=== PATIENT | female | born 1950 | race African-American/Black ===

== ENCOUNTER 2019-10-17 14:36 | Inpatient (IN) | payer MEDICARE ==
--- NOTE | 2019-10-17 16:01 | ED ---
General Adult HPI - General Chief complaint: Psychiatric Symptoms Stated complaint: Mental Health Time Seen by Provider: 10/17/19 14:51 Source: EMS Mode of arrival: EMS Limitations: physical limitation - History of Present Illness Initial comments: Dictation was produced using [employer] dictation software. please excuse any grammatical, word or spelling errors. Chief Complaint: 69-year-old female brought in by daughter for psych evaluation. History of Present Illness: 69-year-old female she denies any significant medical history. She reports that she has a diagnosis of paranoid schizophrenia that she was diagnosed with at the age of 14. She is to take psychiatric medication however has not taken in 2-3 years. Daughter is concerned that patient has symptoms of psychosis. She's been having difficulty sleeping and been more agitated usual. She's been displaying aggressive behavior. Daughter is concerned about her well-being and decided to bring patient for psych evaluation. Patient has no medical complaints at this time. She does not agree with being here in the emergency Department however she is agreeable to being e valuated. Denies any chest pain, shortness of breath. Denies any urinary symptoms. The ROS documented in this emergency department record has been reviewed and confirmed by me. Those systems with pertinent positive or negative responses have been documented in the HPI. All other systems are other negative and/or noncontributory. PHYSICAL EXAM: General Impression: Alert and oriented x3, not in acute distress HEENT: Normocephalic atraumatic, extra-ocular movements intact, pupils equal and reactive to light bilaterally, mucous membranes moist, poor dentition Cardiovascular: Heart regular rate and rhythm, S1&S2 audible, no murmurs, rubs or gallops Chest: Lungs clear to auscultation bilaterally, no rhonchi, no wheeze, no rales Abdomen: Bowel sounds present, abdomen soft, non-tender, non-distended, no organomegaly Musculoskeletal: Pulses present and equal in all extremities, no peripheral edema Motor: no focal deficits noted Neurological: CN II-XII grossly intact, no focal motor or sensory deficits noted Skin: Intact with no visualized rashes Psych: Normal affect and mood ED course: 69-year-old female presents with daughter who was concerned about acute psychosis. She has been symptoms of insomnia and agitation. Vital signs upon arrival are within acceptable limits. Patient has no medical complaints at this time. Labs obtained for medical clearance it CBC unremarkable. Metabolic panel shows hypokalemia of 2.9, creatinine of 2.04. Drug screen is positive for benzodia zepines. Patient's well-appearing at this time. It's unclear whether she has baseline Andreia disease. Daughter is not sure. Given these findings to have patient admitted medically. She is given by mouth potassium and intravenous fluids patient be admitted for concern acute kidney injury and hypokalemia. Psychiatry will be on consult. Daughters agreeable with plan. Discussed patient case with Dr. Puentes was went except patient care for [facility] hospitalist group. Patient came provided. Petition was completed by daughter. Patient needed some Ativan for rest of behavior. - Related Data Home Medications Medication Instructions Recorded Confirmed ALPRAZolam [Xanax] 0.25 mg PO HS PRN 10/17/19 10/17/19 Ascorbic Acid [Vitamin C] 500 mg PO DAILY 10/17/19 10/17/19 Baclofen [Lioresal] 10 mg PO HS PRN 10/17/19 10/17/19 Cholecalciferol [Vitamin D3 (25 1,000 unit PO DAILY 10/17/19 10/17/19 Mcg = 1000 Iu)] Dextran/Hypromellose/Glycerin 1 drop BOTH EYES Q4H PRN 10/17/19 10/17/19 [Genteal Tears 0.1%-0.2%-0.3%] Enalapril [Vasotec] 20 mg PO BID 10/17/19 10/17/19 Ergocalciferol [Vitamin D2] 50,000 unit PO MO 10/17/19 10/17/19 Ferrous Sulfate [Feosol] 325 mg PO DAILY 10/17/19 10/17/19 Fluticasone Nasal [place] [Flonase 2 spr EA NOSTRIL DAILY 10/17/19 10/17/19 Nasal [place]] Labetalol [Trandate] 400 mg PO Q12H 10/17/19 10/17/19 Levothyroxine Sodium [Synthroid] 175 mcg PO DAILY 10/17/19 10/17/19 Multivitamins, Thera [Multivitamin 1 tab PO DAILY 10/17/19 10/17/19 (formulary)] NIFEdipine [Procardia XL] 90 mg PO DAILY 10/17/19 10/17/19 Potassium Chloride ER [K-Dur 20] 20 meq PO DAILY 10/17/19 10/17/19 Simvastatin [Zocor] 20 mg PO DAILY@1200 10/17/19 10/17/19 Temazepam [Restoril] 15 mg PO HS 10/17/19 10/17/19 Timolol 0.5% Ophth Soln [Timoptic 1 drop LEFT EYE BID 10/17/19 10/17/19 0.5% Ophth Soln] Triamterene/Hydrochlorothiazid 1 tab PO DAILY 10/17/19 10/17/19 [Triamterene-Hctz 37.5-25 mg Tb] glipiZIDE [Glucotrol] 20 mg PO AC-BID 10/17/19 10/17/19 hydrALAZINE HCL [Apresoline] 100 mg PO Q8H 10/17/19 10/17/19 prednisoLONE ACETATE 1% OPHTH 1 drops LEFT EYE BID 10/17/19 10/17/19 [Pred Forte 1%] sitaGLIPtin [Januvia] 100 mg PO DAILY 10/17/19 10/17/19 Allergies Allergy/AdvReac Type Severity Reaction Status Date / Time codeine AdvReac Vomiting Verified 10/17/19 16:54 Sulfa (Sulfonamide AdvReac Rash/Hives Verified 10/17/19 16:54 Antibiotics) Review of Systems ROS Statement: Those systems with pertinent positive or pertinent negative responses have been documented in the HPI. ROS Other: All systems not noted in ROS Statement are negative. Past Medical History Past Medical History: No Reported History Additional Past Medical History / Comment(s): unable to obtain Additional Past Surgical History / Comment(s): unable to obtain Past Psychological History: Schizophrenia Smoking Status: Current some day smoker Past Alcohol Use History: None Reported Past Drug Use History: None Reported General Exam Limitations: physical limitation Course Vital Signs 10/17/19 15:33 Temperature 97.9 F Pulse Rate 76 Respiratory 16 Rate Blood Pressure 151/76 O2 Sat by Pulse 99 Oximetry Medical Decision Making - Lab Data Result diagrams: 10/17/19 16:08 10/17/19 16:08 Lab Results 10/17/19 10/17/19 10/17/19 Range/Units 16:08 16:08 17:14 WBC 8.4 (3.8-10.6) k/uL RBC 4.61 (3.80-5.40) m/uL Hgb 12.8 (11.4-16.0) gm/dL Hct 40.6 (34.0-46.0) % MCV 88.2 (80.0-100.0) fL MCH 27.7 (25.0-35.0) pg MCHC 31.4 (31.0-37.0) g/dL RDW 16.2 H (11.5-15.5) % Plt Count 337 (150-450) k/uL Neutrophils % 63 % Lymphocytes % 27 % Monocytes % 6 % Eosinophils % 2 % Basophils % 2 % Neutrophils # 5.3 (1.3-7.7) k/uL Lymphocytes # 2.2 (1.0-4.8) k/uL Monocytes # 0.5 (0-1.0) k/uL Eosinophils # 0.2 (0-0.7) k/uL Basophils # 0.1 (0-0.2) k/uL Anisocytosis Slight Sodium 138 (137-145) mmol/L Potassium 2.9 L (3.5-5.1) mmol/L Chloride 107 (98-107) mmol/L Carbon Dioxide 23 (22-30) mmol/L Anion Gap 8 mmol/L BUN 20 H (7-17) mg/dL Creatinine 2.04 H (0.52-1.04) mg/dL Est GFR (CKD-EPI)AfAm 28 (>60 ml/min/1.73 sqM) Est GFR (CKD-EPI)NonAf 25 (>60 ml/min/1.73 sqM) Glucose 103 H (74-99) mg/dL Calcium 9.1 (8.4-10.2) mg/dL Urine Opiates Screen Not Detected (NotDetected) Ur Oxycodone Screen Not Detected (NotDetected) Urine Methadone Screen Not Detected (NotDetected) Ur Propoxyphene Screen Not Detected (NotDetected) Ur Barbiturates Screen Not Detected (NotDetected) U Tricyclic Antidepress Not Detected (NotDetected) Ur Phencyclidine Scrn Not Detected (NotDetected) Ur Amphetamines Screen Not Detected (NotDetected) U Methamphetamines Scrn Not Detected (NotDetected) U Benzodiazepines Scrn Detected H (NotDetected) Urine Cocaine Screen Not Detected (NotDetected) U Marijuana (THC) Screen Not Detected (NotDetected) Disposition Clinical Impression: Hypokalemia, FLEX (acute kidney injury), Psychosis Disposition: ADMITTED IP TO THIS HOSP Condition: Fair Referrals: Ketty Gomez MD [Primary Care Provider] - 1-2 days Decision Time: 19:23
[2019-10-17 16:29] LABS: Calcium 9.1 mg/dL (8.4-10.2); Potassium 2.9 mmol/L (3.5-5.1)
[2019-10-17 16:39] LABS: Anisocytosis Slight; Basophils # (A) 0.1 k/uL (0-0.2); Basophils % (A) 2 %; Eosinophils # (A) 0.2 k/uL (0-0.7); Eosinophils % (A) 2 %; HCT 40.6 % (34.0-46.0); HGB 12.8 gm/dL (11.4-16.0); Lymphocytes # (A) 2.2 k/uL (1.0-4.8); Lymphocytes % (A) 27 %; MCH 27.7 pg (25.0-35.0); MCHC 31.4 g/dL (31.0-37.0); MCV 88.2 fL (80.0-100.0); Mean Platelet Volume 7.8; Monocytes # (A) 0.5 k/uL (0-1.0); Monocytes % (A) 6 %; Neutrophils # (A) 5.3 k/uL (1.3-7.7); Neutrophils % (A) 63 %; Platelet Count 337 k/uL (150-450); RBC 4.61 m/uL (3.80-5.40); RDW 16.2 % (11.5-15.5); WBC 8.4 k/uL (3.8-10.6)
[2019-10-17 18:10] LABS: Amphetamine Screen,Urine Not Detected (NotDetected); Barbiturate Screen,Urine Not Detected (NotDetected); Benzodiazepines Screen,Urine Detected (NotDetected); Cocaine Screen,Urine Not Detected (NotDetected); Methadone Screen, Urine Not Detected (NotDetected); Opiate Screen,Urine Not Detected (NotDetected); Oxycodone Screen, Urine Not Detected (NotDetected); Phencyclidine Screen,Urine Not Detected (NotDetected); Tricyclic Antidepressant,Urine Not Detected (NotDetected); Urn Cannabinoid Scrn Not Detected (NotDetected)
[2019-10-17] MEDS ORDERED: POTASSIUM CHLORIDE ER 20 MEQ TAB.ER PO STA (18:16)
[2019-10-17] MEDS ORDERED: SODIUM CHLORIDE 0.9% 500 ML 500 ML IV STA (19:17)
[2019-10-17] MEDS ORDERED: LORazepam 1 MG TAB PO STA (19:46)
[2019-10-17] MEDS ORDERED: LORazepam 2 MG/ML INJ IM STA (19:51)
[2019-10-17] MEDS ORDERED: NALOXONE 0.4 MG/ML 1 ML VIAL IV PRN (23:13)
[2019-10-18] MEDS: SODIUM CHLORIDE 0.9% 1,000 ML IV SCH ×2 (01:52→10:19)
[2019-10-18] MEDS: LORazepam 2 MG/ML INJ IV PRN ×2 (10:18→20:31)
[2019-10-18] MEDS ORDERED: BACLOFEN 10 MG TAB PO PRN (11:07)
[2019-10-18] MEDS ORDERED: ALPRAZolam 0.25 MG TAB PO PRN (11:07)
[2019-10-18] MEDS ORDERED: ARTIFICIAL TEARS-HYPROMELLOSE DROPS 15 ML BTL BOTH EYES PRN (11:07)
[2019-10-18] MEDS: hydrALAZINE HCL 50 MG TAB PO SCH ×2 (12:17→20:35)
[2019-10-18] MEDS: LABETALOL 200 MG TAB PO SCH ×2 (12:18→20:35)
[2019-10-18] MEDS: NIFEdipine XL 90 MG TAB.ER.24 PO SCH (12:18)
[2019-10-18 12:59] LABS: Albumin 3.6 g/dL (3.5-5.0); Bilirubin, Delta 0.5 mg/dL (0.0-0.2); Bilirubin,Unconjugated 0.5 mg/dL (0.0-1.1); Total Protein 6.9 g/dL (6.3-8.2)
--- NOTE | 2019-10-18 13:00 | XR ---
EXAMINATION TYPE: XR chest 1V portable DATE OF EXAM: 10/18/2019 COMPARISON: NONE HISTORY: Shortness of breath and congestive heart failure TECHNIQUE: Single frontal view of the chest is obtained. FINDINGS: Right lower lung masslike opacity is seen obscuring the right heart border. Patient's chin obscures the lung apices. Cardia mediastinal silhouette is enlarged. No sizable pleural effusions. O sseous structures are grossly intact. IMPRESSION: Masslike consolidation of the right lower lobe. CT thorax is recommended to evaluate for pulmonary mass.
[2019-10-18 13:26] LABS: Glucose,Whole Blood 88 mg/dL (75-99)
[2019-10-18 15:03] LABS: Albumin 3.5 g/dL (3.5-5.0); Total Protein 6.7 g/dL (6.3-8.2)
[2019-10-18] MEDS ORDERED: flUPHENAZine 2.5 MG/ML (MDV) 10 ML VIAL IM PRN (15:28)
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
[2019-10-18] MEDS ORDERED: LORazepam 2 MG/ML INJ IM PRN (15:29)
[2019-10-18] MEDS ORDERED: IOPAMIDOL CONTRAST (ORAL USE) VIAL PO PRN (16:51)
[2019-10-18 17:15] LABS: Glucose,Whole Blood 112 mg/dL (75-99)
[2019-10-18] MEDS: glipiZIDE 10 MG TAB PO SCH (17:50)
[2019-10-18] MEDS: TIMOLOL 0.5% OPHTH DROPS 5 ML BTL LEFT EYE SCH (20:33)
[2019-10-18] MEDS: prednisoLONE ACETATE 1% OPHTH DROPS 5 ML BTL LEFT EYE SCH (20:34)
[2019-10-18 20:52] LABS: Glucose,Whole Blood 146 mg/dL (75-99)
[2019-10-18] MEDS ORDERED: TEMAZEPAM 15 MG CAP PO PRN (21:00)
[2019-10-18 21:41] LABS: Appearance,Urine Clear (Clear); Bacteria,Urine Rare /hpf; Bilirubin,Urine Negative (Negative); Blood,Urine Small (Negative); Color,Urine Yellow; Glucose,Urine (UA) 1+ (Negative); Ketones,Urine Negative (Negative); Leukocyte Esterase,Urine Negative (Negative); Mucus,Urine Rare /hpf; Nitrite,Urine Negative (Negative); Protein,Urine 3+ (Negative); Urobilinogen,Urine <2.0 mg/dL (<2.0); WBC,Urine 1 /hpf (0-5)
--- NOTE | 2019-10-18 23:22 | HP ---
HISTORY AND PHYSICAL DATE OF SERVICE: 10/18/2019. CHIEF COMPLAINTS: Change in mental status. HISTORY OF PRESENT ILLNESS: This 69-year-old woman with a past medical history of multiple medical problems including history of CHF, history of diabetes, hypertension, hyperlipidemia, sleep apnea, hypothyroidism, history of anxiety, depression, being followed by Dr. Ketty Gomez in the outpatient setting, was not feeling well over the past several days. Apparently the daughter is living with her and the daughter has noticed that the patient became increasingly paranoid and confused. The patient also had generalized weakness and diminished p.o. intake and because of symptom worsening, the psychosis was suspected and the daughter petitioned the patient. The patient was admitted to the hospital for further evaluation and treatment. Currently, the patient is sedated with Ativan, unable to give a coherent history. Most of the history received was taken from my discussions with staff, discussion with daughter at the bedside and review of the chart at this time. The creatinine has worsened, currently at 2.04. The previous creatinine unknown. Patient was started on IV fluids. Patient being closely monitored at this time. PAST MEDICAL HISTORY: History of CHF, diabetes, hypertension, hyperlipidemia, history of sleep apnea, hypothyroidism, history of anxiety, schizophrenia. MEDICATIONS: Prior to admission include home medications are: 1. Januvia 100 mg p.o. daily. 2. Pred Forte ophthalmic eye drops. 3. Apresoline 100 mg p.o. q.h.s. 4. Glucotrol 20 mg a.c. b.i.d. 5. Triamterene hydrochlorothiazide 37.5 mg 25 mg p.o. daily. 6. Timolol eyedrops 1 drop left eye b.i.d. 7. Restoril 15 mg q.h.s. 8. Zocor 20 mg p.o. daily. 9. K-Dur 20 mEq p.o. daily. 10.Procardia XL 90 mg p.o. daily. 11.Multivitamins 1 p.o. daily. 12.Synthroid 175 mg p.o. daily. 13.Labetalol 400 mg p.o. b.i.d. 14.Flonase 2 sprays daily. 15.Iron sulfate 320 mg p.o. daily. 16.Vitamin D2 50,000 p.o. Friday. 17.Lasix 20 mg p.o. b.i.d. 18.GenTeal 1 drop both eyes q.4h p.r.n. 19.Vitamin D3 1000 units p.o. daily. 20.Lioresal 10 mg q.h.s. p.r.n. 21.Vitamin C 500 mg p.o. daily. 22.Xanax 0.25 mg q.h.s. p.r.n. ALLERGIES: CODEINE AND SULFA. Family history, social history and review of systems could not be taken because of the patient's change in mental status and sedation. PHYSICAL EXAM: Patient is stuporous, arousable. Pulse 80. Blood pressure 145/84, respirations 17, temperature 98 degrees, pulse ox 94% on room air. HEENT: Conjunctivae normal. Oral mucosa moist. NECK is no jugular venous distention. No carotid bruit. No lymph node enlargement. Cardiovascular system: S1, S2 muffled. No S3, no S4. RESPIRATORY: Breath sounds diminished in the bases. A few scattered rhonchi. A few scattered rhonchi. No crackles. ABDOMEN: Soft, nontender. No mass palpable. LEGS: No edema. No swelling. Nervous system could not be examined as mentioned earlier, the patient is stuporous at this time. SKIN: No ulcer. No rash and no bleeding. JOINTS: No active deforming arthropathy. LYMPHATICS: No lymph nodes palpable in the neck, axillae or groin. LABS: CBC noted. Sodium 138, potassium 2.9, creatinine is 2.04. ASSESSMENT: 1. Change in mental status, metabolic encephalopathy, possibly acute secondary to renal failure and dehydration. 2. Diminished p.o. intake. 3. Masslike consolidation in the right lower lobe. 4. Possible psychosis. 5. Hypokalemia, possibly secondary to diminished p.o. intake. 6. History of congestive heart failure. 7. History of diabetes type 2. 8. Hypertension. 9. Hyperlipidemia. 10.History of renal disease. 11.History of sleep apnea. 12.History of hysterectomy. 13.History of anxiety, schizophrenia. 14.FULL CODE. RECOMMENDATIONS AND DISCUSSION: In this 63-year-old woman who presented with multiple complex medical issues, we will monitor the patient closely, the exact etiology of the change in mental status, unknown at this time. A chest x-ray has been done which showed a masslike consolidation in the right lower lobe. I would recommend a CT scan of the brain and as well as CT scan of the chest also. Empiric antibiotics also will be given. Otherwise, IV fluids. Resume the home medications. DVT prophylaxis and I would also recommend psychiatric consultation and pulmonology consultation. Prognosis guarded. Further recommendations to follow. Discussed with the patient's family who understands and agrees. MMODL / IJN: [id number] /
--- NOTE | 2019-10-19 01:35 | CONS ---
CONSULTATION REASON FOR CONSULT: Renal failure. HISTORY OF PRESENT ILLNESS: The patient is a 69-year-old female with history of chronic kidney disease secondary to diabetic nephropathy, status post kidney biopsy in June of 2019. The patient was admitted to the hospital with family having noticed aggressive behavior and increased agitation. The patient does have a history of paranoid schizophrenia, but has not been on medications for about 2-3 years now. She has been repeatedly asking for her blood work. No complaints of chest pains or shortness of breath. Serum creatinine this admission was 2.0 yesterday and today it is at 1.87. The patient is not on any IV fluids. She did receive IV fluids initially. PAST MEDICAL HISTORY: Chronic kidney disease stage 3 secondary to diabetic nephropathy, biopsy-proven, history of paranoid schizophrenia, hypertension, hypothyroidism, vitamin D deficiency. PAST SURGICAL HISTORY: Previous history of kidney biopsy, cataract surgery, hysterectomy, left knee arthroscopy, left knee arthroplasty, appendectomy, colonoscopy. Diabetes. MEDICATIONS: Medications prior to admission included Januvia, Glucotrol, Restoril, Zocor, Procardia, potassium, Trandate, Synthroid, Flonase, iron, Vasotec, vitamin C, Xanax, vitamin D3, iron. SOCIAL HISTORY: Social history is positive for smoking. No history of drug abuse or other alcohol abuse. PHYSICAL EXAMINATION: On examination, patient is comfortable. She is not in any acute distress. She seems quite upset. She is agitated. Patient has been asking for her labs repeatedly since last night. PHYSICAL EXAMINATION: This morning, blood pressure is 144/84, heart rate 80 per minute. She is afebrile. Examination of the heart S1, S2. Examination of the lungs, decreased breath sounds at bases. Abdomen is soft, nontender, obese. Examination of lower extremities shows edema 1+ bilaterally. Chronic skin changes noted. HYDROLOGIC ENGINEER exam grossly intact. LABS: Show sodium 138, potassium 4.0, BUN 19, creatinine 1.87. ASSESSMENT: 1. Chronic kidney disease stage 3 B to IV, secondary to diabetic nephropathy status post kidney biopsy in June of 2019. 2. Hypokalemia, status post replacement, now improved. 3. History of paranoid schizophrenia, currently with aggressive behavior, being followed by Psychiatry. 4. Type 2 diabetes. 5. Hypertension with chronic kidney disease. PLAN: Continue off IV fluids. Repeat labs in a.m. Thank you for this consultation. We will continue to follow the patient with you during her hospitalization. MMKELYL / JYOTIN: [id number] /
[2019-10-19] MEDS: hydrALAZINE HCL 50 MG TAB PO SCH ×3 (02:20→20:58)
[2019-10-19 07:38] LABS: Glucose,Whole Blood 76 mg/dL (75-99)
[2019-10-19] MEDS: LABETALOL 200 MG TAB PO SCH ×2 (07:57→20:58)
[2019-10-19] MEDS: MULTIVITAMINS, THERA 1 EACH TAB PO SCH (07:57)
[2019-10-19] MEDS: glipiZIDE 10 MG TAB PO SCH ×3 (07:57→17:37)
[2019-10-19] MEDS: FERROUS SULFATE 325 MG TAB PO SCH (07:58)
[2019-10-19] MEDS: LINAGLIPTIN 5 MG TABLET PO SCH (07:58)
[2019-10-19] MEDS: LEVOTHYROXINE 88 MCG TAB PO SCH (07:59)
[2019-10-19] MEDS: ASCORBIC ACID 500 MG TAB PO SCH (07:59)
[2019-10-19] MEDS: NIFEdipine XL 90 MG TAB.ER.24 PO SCH (07:59)
[2019-10-19] MEDS: FLUTICASONE 50MCG/SPRAY NASAL 16GM EA NOSTRIL SCH (08:00)
[2019-10-19] MEDS: prednisoLONE ACETATE 1% OPHTH DROPS 5 ML BTL LEFT EYE SCH ×2 (08:03→20:58)
[2019-10-19] MEDS: TIMOLOL 0.5% OPHTH DROPS 5 ML BTL LEFT EYE SCH ×2 (08:03→20:57)
[2019-10-19 11:51] LABS: Anisocytosis Slight; Basophils # (A) 0.1 k/uL (0-0.2); Basophils % (A) 1 %; Eosinophils # (A) 0.2 k/uL (0-0.7); Eosinophils % (A) 3 %; HCT 39.6 % (34.0-46.0); HGB 12.1 gm/dL (11.4-16.0); Hypochromasia Slight; Lymphocytes % (A) 26 %; MCH 27.3 pg (25.0-35.0); MCHC 30.4 g/dL (31.0-37.0); MCV 89.5 fL (80.0-100.0); Mean Platelet Volume 7.6; Monocytes # (A) 0.4 k/uL (0-1.0); Monocytes % (A) 5 %; Neutrophils # (A) 4.9 k/uL (1.3-7.7); Neutrophils % (A) 64 %; Platelet Count 279 k/uL (150-450); RBC 4.43 m/uL (3.80-5.40); RDW 16.1 % (11.5-15.5); WBC 7.6 k/uL (3.8-10.6)
[2019-10-19 12:03] LABS: Calcium 8.6 mg/dL (8.4-10.2); Potassium 3.3 mmol/L (3.5-5.1); Total Bilirubin 0.7 mg/dL (0.2-1.3); Total Protein 5.8 g/dL (6.3-8.2)
[2019-10-19 12:23] LABS: Glucose,Whole Blood 190 mg/dL (75-99)
[2019-10-19] MEDS ORDERED: POTASSIUM CHLORIDE ER 20 MEQ TAB.ER PO STA (15:31)
--- NOTE | 2019-10-19 15:33 | P.PN ---
Subjective Progress Note Date: 10/19/19 Principal diagnosis: This is a 69-year-old female past medical history of multiple medical problems and was recently admitted for generalized weakness, diminished oral intake, acute renal failure, dehydration, and changes in mental status and is being closely monitored. Patient currently lives with her daughter and her daughter cares for her and started noticing these changes over the last several days. Today patient is sitting up at the side of the bed currently eating breakfast. Nephrology and psychiatry are following closely. Social work is also following and working on possible placement at an inpatient psychiatric facility. Current creatinine today has worsened and is 2.06. Encouraged oral intake as patient is currently off IV fluids. Potassium is 3.3 today and will be replaced. Review of Systems: Unable to obtain due to current mental status Active Medications Artificial Tears (Artificial Tear Drops) 1 drops BOTH EYES Q4H PRN PRN Reason: DRY EYES Ascorbic Acid (Vitamin C) 500 mg PO DAILY [facility] Last Admin: 10/19/19 07:59 Dose: 500 mg Documented by: Ferrous Sulfate (Feosol) 325 mg PO DAILY [facility] Last Admin: 10/19/19 07:58 Dose: Not Given Documented by: Fluphenazine HCl (Prolixin) 2 mg PO BID [facility] Last Admin: 10/19/19 08:00 Dose: 2 mg Documented by: Fluphenazine HCl (Prolixin) 2.5 mg IM Q6HR PRN PRN Reason: Agitation or Acute Psychosis Fluticasone Propionate (Flonase Nasal [place]) 2 spray EA NOSTRIL DAILY [facility] Last Admin: 10/19/19 08:00 Dose: Not Given Documented by: Glipizide (Glucotrol) 20 mg PO AC-BID [facility] Last Admin: 10/19/19 09:43 Dose: Not Given Documented by: Hydralazine HCl (Apresoline) 100 mg PO Q8H [facility] Last Admin: 10/19/19 07:57 Dose: 100 mg Documented by: Iopamidol (Isovue-300 (For Oral Use)) 30 ml PO Q60M PRN PRN Reason: CT Scan Stop: 10/19/19 16:52 Labetalol HCl (Trandate) 400 mg PO Q12HR [facility] Last Admin: 10/19/19 07:57 Dose: 400 mg Documented by: Levothyroxine Sodium (Synthroid) 176 mcg PO DAILY@0630 [facility] Last Admin: 10/19/19 07:59 Dose: 176 mcg Documented by: Linagliptin (Tradjenta) 5 mg PO DAILY [facility] Last Admin: 10/19/19 07:58 Dose: Not Given Documented by: Lorazepam (Ativan) 1 mg IV Q4HR PRN PRN Reason: Agitation Last Admin: 10/18/19 20:31 Dose: 1 mg Documented by: Lorazepam (Ativan) 1 mg IM Q8HR PRN PRN Reason: Agitation Multivitamins (Theragran) 1 each PO DAILY [facility] Last Admin: 10/19/19 07:57 Dose: 1 each Documented by: Naloxone HCl (Narcan) 0.2 mg IV Q2M PRN PRN Reason: Opioid Reversal Nifedipine (Procardia Xl) 90 mg PO DAILY [facility] Last Admin: 10/19/19 07:59 Dose: 90 mg Documented by: Prednisolone Acetate (Pred Forte 1%) 1 drops LEFT EYE BID [facility] Last Admin: 10/19/19 08:03 Dose: Not Given Documented by: Timolol Maleate (Timoptic) 1 drops LEFT EYE BID [facility] Last Admin: 10/19/19 08:03 Dose: Not Given Documented by: Objective - Vital Signs Vital signs: Vital Signs Temp 98 F 10/19/19 07:00 Pulse 96 10/19/19 07:00 Resp 18 10/19/19 07:00 BP 155/90 10/19/19 07:00 Pulse Ox 97 10/18/19 15:00 Intake & Output 10/18/19 10/19/19 10/19/19 18:59 06:59 18:59 Other: # Voids 4 1 - Exam Gen: This is a 69-year-old female sitting up at the side of the bed, awake and alert. Well-nourished. Hair and clothing are disheveled. HEENT: Head is atraumatic, normocephalic. Pupils equal, round. Sclerae is anicteric. NECK: Supple. No JVD. No lymphadenopathy. No thyromegaly. LUNGS: Diminished breath sounds at the bases with no wheezing noted. A few scattered rhonchi noted No intercostal retractions. HEART: Regular rate and rhythm. No murmur. ABDOMEN: Soft. Bowel sounds are present. No masses. No tenderness. EXTREMITIES: No pedal edema. No calf tenderness. NEUROLOGICAL: Patient is awake, alert and oriented x2-3. - Labs CBC & Chem 7: 10/19/19 11:35 10/19/19 11:35 Labs: Abnormal Lab Results - Last 24 Hours (Table) 10/18/19 10/18/19 10/18/19 Range/Units 11:41 11:41 17:13 Chloride 108 H (98-107) mmol/L BUN 19 H (7-17) mg/dL Creatinine 1.87 H (0.52-1.04) mg/dL Glucose 108 H (74-99) mg/dL POC Glucose (mg/dL) 112 H (75-99) mg/dL Delta Bilirubin 0.5 H (0.0-0.2) mg/dL AST 49 H 48 H (14-36) U/L Alkaline Phosphatase 148 H 150 H (38-126) U/L Creatine Kinase 187 H (30-135) U/L Urine Protein (Negative) Urine Glucose (UA) (Negative) Urine Blood (Negative) Urine Bacteria (None) /hpf Urine Mucus (None) /hpf 10/18/19 10/18/19 Range/Units 20:36 21:20 Chloride (98-107) mmol/L BUN (7-17) mg/dL Creatinine (0.52-1.04) mg/dL Glucose (74-99) mg/dL POC Glucose (mg/dL) 146 H (75-99) mg/dL Delta Bilirubin (0.0-0.2) mg/dL AST (14-36) U/L Alkaline Phosphatase (38-126) U/L Creatine Kinase (30-135) U/L Urine Protein 3+ H (Negative) Urine Glucose (UA) 1+ H (Negative) Urine Blood Small H (Negative) Urine Bacteria Rare H (None) /hpf Urine Mucus Rare H (None) /hpf Assessment and Plan Assessment: Change in mental status, metabolic encephalopathy, possibly acute secondary to renal failure and dehydration Diminished oral intake Masslike consolidation in the right lower lobe Possible psychosis Hypokalemia, possibly secondary to diminished by mouth intake History of congestive heart failure History of diabetes mellitus type 2 Hypertension Hyperlipidemia history of renal disease History of sleep apnea history of hysterectomy History of anxiety, schizophrenia Full code Recommendations and discussion: In this 63-year-old female who presents with multiple complex medical issues we will continue to monitor closely. Recommend to continue current medications, management, and symptomatic treatment. Will continue to monitor vital signs and labs closely. Will repeat a.m. labs. Current creatinine today is slightly worsened and is 2.09. Potassium today is 3.3 and will be replaced. Encouraged oral intake as the patient continues to pull her IVs out and refusing any further IVs. Nephrology is aware. Case management and social work are following as the patient will be requiring inpatient psychiatric facility once stabilized. Nephrology is also following. Due to multiple complex medical issues prognosis is guarded and patient is requiring full hospital admission of more than 2 nights stay. Further recommendations to follow.
[2019-10-19 17:39] LABS: Glucose,Whole Blood 137 mg/dL (75-99)
[2019-10-19 20:27] LABS: Glucose,Whole Blood 154 mg/dL (75-99)
--- NOTE | 2019-10-19 20:52 | PN ---
PROGRESS NOTE The patient is seen for followup for CKD. She is currently comfortable. Patient denies any significant complaints. She seems much more calmer than yesterday. PHYSICAL EXAMINATION: On examination, blood pressure was 121/82, heart rate 72 per minute, patient is afebrile. Examination of the heart S1, S2. Examination of the lungs, bilateral breath sounds are heard. Abdomen is soft, nontender, obese. Examination of lower extremities edema 1+ bilaterally. LABS: Sodium 138, potassium 3.3, chloride 108, BUN 18, creatinine 2.06. ASSESSMENT: 1. Chronic kidney disease secondary to diabetic nephropathy. Renal function close to baseline. 2. Hypokalemia, status post replacement. No ongoing diarrhea or vomiting. The patient is currently not on any diuretics, although she was maintained on Dyazide at home. We will repeat electrolytes again in a.m. 3. History of bipolar disorder, status post psychiatric evaluation. PLAN: Repeat labs in a.m. MMKELYL / JYOTIN: [id number] /
[2019-10-20] MEDS: hydrALAZINE HCL 50 MG TAB PO SCH ×3 (03:31→20:10)
[2019-10-20] MEDS: LEVOTHYROXINE 88 MCG TAB PO SCH (05:44)
[2019-10-20 05:45] LABS: Glucose,Whole Blood 120 mg/dL (75-99)
[2019-10-20 07:22] LABS: Glucose,Whole Blood 126 mg/dL (75-99)
[2019-10-20] MEDS: NIFEdipine XL 90 MG TAB.ER.24 PO SCH ×3 (08:26→17:12)
[2019-10-20] MEDS: glipiZIDE 10 MG TAB PO SCH ×3 (08:27→17:12)
[2019-10-20] MEDS: FLUTICASONE 50MCG/SPRAY NASAL 16GM EA NOSTRIL SCH (08:27)
[2019-10-20] MEDS: LINAGLIPTIN 5 MG TABLET PO SCH ×2 (08:27→08:41)
[2019-10-20] MEDS: MULTIVITAMINS, THERA 1 EACH TAB PO SCH ×2 (08:27→08:41)
[2019-10-20] MEDS: LABETALOL 200 MG TAB PO SCH ×3 (08:27→20:10)
[2019-10-20] MEDS: FERROUS SULFATE 325 MG TAB PO SCH ×2 (08:27→08:41)
[2019-10-20] MEDS: ASCORBIC ACID 500 MG TAB PO SCH ×2 (08:27→08:41)
[2019-10-20] MEDS: TIMOLOL 0.5% OPHTH DROPS 5 ML BTL LEFT EYE SCH ×2 (08:39→20:21)
[2019-10-20] MEDS: prednisoLONE ACETATE 1% OPHTH DROPS 5 ML BTL LEFT EYE SCH ×3 (08:39→20:22)
[2019-10-20 11:42] LABS: Calcium 9.1 mg/dL (8.4-10.2); Potassium 3.5 mmol/L (3.5-5.1)
[2019-10-20 11:49] LABS: Glucose,Whole Blood 143 mg/dL (75-99)
[2019-10-20] MEDS ORDERED: SENNOSIDES 8.6 MG TAB PO PRN (11:49)
--- NOTE | 2019-10-20 14:30 | P.DS ---
Providers Date of admission: 10/19/19 13:53 Expected date of discharge: 10/20/19 Attending physician: Chucho Vera Consults: 10/17/19 18:16 Consult Physician Routine Consulting Provider: Clif Simpson Consult Reason/Comments: psych eval Do you want consulting provider notified?: Yes 10/17/19 23:14 Consult Physician Routine Consulting Provider: Guerda Smiley Consult Reason/Comments: chandler Do you want consulting provider notified?: Yes 10/18/19 04:51 Consult Physician Routine Consulting Provider: Chucho Vera Consult Reason/Comments: Psych evaluation Do you want consulting provider notified?: Yes Primary care physician: Ketty Stearns [facility] Course: Final diagnosis Change in mental status, metabolic encephalopathy, possibly acute secondary to renal failure and dehydration Diminished oral intake Mass-like consolidation in the right lower lobe Possible psychosis Hypokalemia, possibly secondary to diminished by mouth intake History of congestive heart failure History of diabetes mellitus type 2 Hypertension Hyperlipidemia history of renal disease History of sleep apnea history of hysterectomy History of anxiety, schizophrenia Full code Discharge disposition Patient is being discharged in a stable condition with guarded prognosis to the inpatient psychiatric facility here. Total time taken is 35 minutes. History of present illness This is a 69-year-old female past medical history of multiple medical problems and was recently admitted for generalized weakness, diminished oral intake, acute renal failure, dehydration, and changes in mental status and is being closely monitored. Patient currently lives with her daughter and her daughter cares for her and started noticing these changes over the last several days. Today patient is sitting up at the side of the bed currently eating breakfast. Nephrology and psychiatry are following closely. Social work is also following and working on possible placement at an inpatient psychiatric facility. Current creatinine today has worsened and is 2.06. Encouraged oral intake as patient is currently off IV fluids. Potassium is 3.3 today and will be replaced. 10/20/2019 Patient is sitting up at the site of the bed with family at the bedside. Patient is currently wearing her CPAP she normally wears her CPAP throughout the day. Patient is eating and tolerating diet with no reports of nausea or vomiting. Patient did have some mild abdominal discomfort requesting something to help move her bowels. Senokot was ordered and will continue at this time as needed. Patient's creatinine today is improved and is currently 1.91. Potassium was replaced yesterday and is currently 3.5 today. Nephrology was seen the patient and has cleared the patient to go to the inpatient psychiatric facility. Currently patient denies any shortness of breath, chest pain, or palpitations. Patient is afebrile. Patient denies any nausea or vomiting and is tolerating diet. Currently patient's condition is stable and is ready for transfer to the psychiatric inpatient facility for continued monitoring and medication adjustments. Certification was renewed. Guarded prognosis. On exam vital signs are stable. Temp is 97.8F, pulse is 75, respirations are 18, blood pressure is 138/84, oxygen saturation is 96% on room air. Cardio S1, S2 are present. Respiratory system shows diminished breath sounds at the bases otherwise clear to auscultation. Abdomen is soft, obese, and nontender. Nervous system shows no focal deficits. Please refer to medication reconciliation sheet for a list of medications. Patient Condition at Discharge: Fair Plan - Discharge Summary New Discharge Prescriptions: New fluPHENAZine [Prolixin] 2 mg PO BID tab Sennosides [Senokot] 8.6 mg PO BID PRN tab PRN Reason: Constipation Linagliptin [Tradjenta] 5 mg PO DAILY tablet Continue glipiZIDE [Glucotrol] 20 mg PO AC-BID Levothyroxine Sodium [Synthroid] 175 mcg PO DAILY Labetalol [Trandate] 400 mg PO Q12H Cholecalciferol [Vitamin D3 (25 Mcg = 1000 Iu)] 1,000 unit PO DAILY hydrALAZINE HCL [Apresoline] 100 mg PO Q8H prednisoLONE ACETATE 1% OPHTH [Pred Forte 1%] 1 drops LEFT EYE BID NIFEdipine [Procardia XL] 90 mg PO DAILY Fluticasone Nasal [place] [Flonase Nasal [place]] 2 spr EA NOSTRIL DAILY Ascorbic Acid [Vitamin C] 500 mg PO DAILY Timolol 0.5% Ophth Soln [Timoptic 0.5% Ophth Soln] 1 drop LEFT EYE BID Ferrous Sulfate [Iron (65 MG Elemental)] 325 mg PO DAILY Ergocalciferol [Vitamin D2 (DRISDOL)] 50,000 unit PO MO Multivitamins, Thera [Multivitamin (formulary)] 1 tab PO DAILY Dextran/Hypromellose/Glycerin [Genteal Tears 0.1%-0.2%-0.3%] 1 drop BOTH EYES Q4H PRN PRN Reason: DRY EYES Discontinued sitaGLIPtin [Januvia] 100 mg PO DAILY Triamterene/Hydrochlorothiazid [Triamterene-Hctz 37.5-25 mg Tb] 1 tab PO DAILY Baclofen [Lioresal] 10 mg PO HS PRN PRN Reason: Pain Temazepam [Restoril] 15 mg PO HS Enalapril [Vasotec] 20 mg PO BID Simvastatin [Zocor] 20 mg PO DAILY@1200 Potassium Chloride ER [K-Dur 20] 20 meq PO DAILY ALPRAZolam [Xanax] 0.25 mg PO HS PRN PRN Reason: Anxiety Discharge Medication List Ascorbic Acid [Vitamin C] 500 mg PO DAILY 10/17/19 [History] Cholecalciferol [Vitamin D3 (25 Mcg = 1000 Iu)] 1,000 unit PO DAILY 10/17/19 [History] Dextran/Hypromellose/Glycerin [Genteal Tears 0.1%-0.2%-0.3%] 1 drop BOTH EYES Q4H PRN 10/17/19 [History] Ergocalciferol [Vitamin D2 (DRISDOL)] 50,000 unit PO MO 10/17/19 [History] Ferrous Sulfate [Iron (65 MG Elemental)] 325 mg PO DAILY 10/17/19 [History] Fluticasone Nasal [place] [Flonase Nasal [place]] 2 spr EA NOSTRIL DAILY 10/17/19 [History] Labetalol [Trandate] 400 mg PO Q12H 10/17/19 [History] Levothyroxine Sodium [Synthroid] 175 mcg PO DAILY 10/17/19 [History] Multivitamins, Thera [Multivitamin (formulary)] 1 tab PO DAILY 10/17/19 [History] NIFEdipine [Procardia XL] 90 mg PO DAILY 10/17/19 [History] Timolol 0.5% Ophth Soln [Timoptic 0.5% Ophth Soln] 1 drop LEFT EYE BID 10/17/19 [History] glipiZIDE [Glucotrol] 20 mg PO AC-BID 10/17/19 [History] hydrALAZINE HCL [Apresoline] 100 mg PO Q8H 10/17/19 [History] prednisoLONE ACETATE 1% OPHTH [Pred Forte 1%] 1 drops LEFT EYE BID 10/17/19 [History] Linagliptin [Tradjenta] 5 mg PO DAILY tablet 10/20/19 [Rx] Sennosides [Senokot] 8.6 mg PO BID PRN tab 10/20/19 [Rx] fluPHENAZine [Prolixin] 2 mg PO BID tab 10/20/19 [Rx] Follow up Appointment(s)/Referral(s): Ketty Gomez MD [Primary Care Provider] - 1-2 days Ambulatory/Diagnostic Orders: Basic Metabolic Panel [LAB.AMB] Time Frame: 2 Days, Location: None Selected Activity/Diet/Wound Care/Special Instructions: Activity as tolerated Continue monitoring blood sugars before meals at bedtime and treat accordingly the sliding scale Repeat labs in 2-3 days to monitor creatinine and potassium Patient is going to inpatient psych Continue current diet Discharge Disposition: TRANSFER TO PSYCH HOSP/UNIT
[2019-10-20 17:25] LABS: Glucose,Whole Blood 162 mg/dL (75-99)
--- NOTE | 2019-10-20 19:46 | PN ---
PROGRESS NOTE DATE OF SERVICE: 10/20/2019 The patient is seen for follow up for chronic kidney disease. Her renal function is fairly stable. Creatinine did go up slightly; however, the patient has been at 1.8 to 1.7 previously on her creatinine. She has underlying diabetic kidney disease. She will be transferred to inpatient psyche for significant bipolar disorder. On examination, blood pressure this morning was 138/84, heart rate 75 per minute, she is afebrile. Examination of the heart, S1 and S2. Examination of the lungs, decreased breath sounds at bases. Abdomen is soft and nontender. Left lower extremity shows no significant edema. [employer] exam is grossly intact. LABS: Shows sodium 137, potassium 3.5, chloride 107, BUN 16, creatinine 1.9. ASSESSMENT: 1. Chronic kidney disease secondary to diabetic nephropathy. Renal function fairly stable, close to baseline. 2. Hypokalemia, status post replacement. 3. History of bipolar disorder with plans for transfer to inpatient psyche. 4. Type 2 diabetes. 5. Hypertension, currently controlled. PLAN: 1. Continue current medications. 2. Monitor renal profile periodically. MMODL / IJN: [id number] /
[2019-10-20] MEDS: LORazepam 2 MG/ML INJ IV PRN (20:11)
[2019-10-20 20:20] LABS: Glucose,Whole Blood 158 mg/dL (75-99)
[2019-10-20] MEDS ORDERED: DOCUSATE 100 MG CAP PO SCH (21:00)
[2019-10-21] MEDS: hydrALAZINE HCL 50 MG TAB PO SCH ×3 (03:29→21:59)
[2019-10-21] MEDS: LEVOTHYROXINE 88 MCG TAB PO SCH (05:44)
[2019-10-21 07:17] LABS: Glucose,Whole Blood 142 mg/dL (75-99)
[2019-10-21] MEDS: LINAGLIPTIN 5 MG TABLET PO SCH (08:12)
[2019-10-21] MEDS: LABETALOL 200 MG TAB PO SCH ×2 (08:13→22:00)
[2019-10-21] MEDS: MULTIVITAMINS, THERA 1 EACH TAB PO SCH (08:14)
[2019-10-21] MEDS: ASCORBIC ACID 500 MG TAB PO SCH (08:14)
[2019-10-21] MEDS: SENNOSIDES 8.6 MG TAB PO SCH ×2 (08:15→21:59)
[2019-10-21] MEDS: FERROUS SULFATE 325 MG TAB PO SCH (08:16)
[2019-10-21] MEDS: FLUTICASONE 50MCG/SPRAY NASAL 16GM EA NOSTRIL SCH (08:16)
[2019-10-21] MEDS: prednisoLONE ACETATE 1% OPHTH DROPS 5 ML BTL LEFT EYE SCH ×2 (08:16→22:01)
[2019-10-21] MEDS: TIMOLOL 0.5% OPHTH DROPS 5 ML BTL LEFT EYE SCH ×2 (08:16→22:01)
[2019-10-21] MEDS: glipiZIDE 10 MG TAB PO SCH ×3 (08:16→17:34)
[2019-10-21] MEDS: NIFEdipine XL 90 MG TAB.ER.24 PO SCH (08:17)
--- NOTE | 2019-10-21 08:30 | P.PN ---
Subjective Progress Note Date: 10/21/19 Principal diagnosis: This is a 69-year-old female past medical history of multiple medical problems and was recently admitted for generalized weakness, diminished oral intake, acute renal failure, dehydration, and changes in mental status and is being closely monitored. Patient currently lives with her daughter and her daughter cares for her and started noticing these changes over the last several days. Today patient is sitting up at the side of the bed currently eating breakfast. Nephrology and psychiatry are following closely. Social work is also following and working on possible placement at an inpatient psychiatric facility. Current creatinine today has worsened and is 2.06. Encouraged oral intake as patient is currently off IV fluids. Potassium is 3.3 today and will be replaced. 10/20/2019 Patient is sitting on the side of the bed currently with her CPAP machine on. When asking patient if she was short of breath patient stated that her breathing was fine and experiencing no shortness of breath. Patient states that she wears her CPAP often throughout the day. Patient was stating that she was having some abdominal discomfort and requesting something to help move her bowels. She states that she is passing gas. Creatinine today is slightly improved and is currently 1.91. Potassium is 3.5 today. Nephrology is following. Patient was cleared by nephrology to go to an inpatient psychiatric facility. Spoke to Dr. Spencer and is willing to accept the patient on the inpatient psychiatric unit. Patient has been up and walking the halls today with no difficulties. Will continue to monitor the patient closely and currently awaiting an accepting facility or if a bed becomes available here on the inpatient psychiatric unit. Objective - Vital Signs Vital signs: Vital Signs Temp 98.9 F 10/21/19 05:00 Pulse 79 10/21/19 05:00 Resp 18 10/21/19 05:00 BP 144/85 10/21/19 05:00 Pulse Ox 97 10/21/19 05:00 Intake & Output 10/20/19 10/21/19 10/21/19 18:59 06:59 18:59 Intake Total 240 840 Balance 240 840 Weight 103.1 kg Intake: Oral 240 840 Other: # Voids 3 2 - Exam Gen: This is a 69-year-old female sitting up at the side of the bed, awake and alert. Well-nourished. Hair and clothing are disheveled. Temp is 98.2F, pulse is 81, respirations are 17, blood pressure is 141/93, oxygen saturation is 92%. HEENT: Head is atraumatic, normocephalic. Pupils equal, round. Sclerae is ani cteric. NECK: Supple. No JVD. No lymphadenopathy. No thyromegaly. LUNGS: Diminished breath sounds at the bases with no wheezing noted. A few scattered rhonchi noted No intercostal retractions. HEART: Regular rate and rhythm. No murmur. ABDOMEN: Soft. Bowel sounds are present. No masses. No tenderness. EXTREMITIES: No pedal edema. No calf tenderness. NEUROLOGICAL: Patient is awake, alert and oriented x2-3. - Labs CBC & Chem 7: 10/19/19 11:35 10/20/19 10:47 Labs: Abnormal Lab Results - Last 24 Hours (Table) 10/20/19 10/20/19 10/20/19 Range/Units 10:47 11:47 17:24 Creatinine 1.91 H (0.52-1.04) mg/dL Glucose 166 H (74-99) mg/dL POC Glucose (mg/dL) 143 H 162 H (75-99) mg/dL 10/20/19 10/21/19 Range/Units 20:18 07:16 Creatinine (0.52-1.04) mg/dL Glucose (74-99) mg/dL POC Glucose (mg/dL) 158 H 142 H (75-99) mg/dL Microbiology - Last 24 Hours (Table) 10/18/19 11:41 Blood Culture - Preliminary Blood No Growth after 48 hours Assessment and Plan Assessment: Change in mental status, metabolic encephalopathy, possibly acute secondary to renal failure and dehydration Diminished oral intake Masslike consolidation in the right lower lobe Possible psychosis Hypokalemia, possibly secondary to diminished by mouth intake History of congestive heart failure History of diabetes mellitus type 2 Hypertension Hyperlipidemia history of renal disease History of sleep apnea history of hysterectomy History of anxiety, schizophrenia Full code Recommendations and discussion: In this 63-year-old female who presents with multiple complex medical issues we will continue to monitor closely. Recommend to continue current medications, management, and symptomatic treatment. Will continue to monitor vital signs and labs closely. Will repeat a.m. labs. Current creatinine today is slightly improved and is 1.91. Potassium today is 3.5. Continue to Encourage oral intake as the patient continues to pull her IVs out and refusing any further IVs. Nephrology and psychiatry are following. Case management and social work are following as the patient will be requiring inpatient psychiatric facility. Clinical CERT was renewed. Due to multiple complex medical issues prognosis is guarded. Further recommendations to follow. Possible discharge to inpatient psychiatric facility in 24-48 hours once a bed becomes available.
[2019-10-21 09:53] LABS: Potassium 3.5 mmol/L (3.5-5.1)
[2019-10-21 12:14] LABS: Glucose,Whole Blood 220 mg/dL (75-99)
--- NOTE | 2019-10-21 13:51 | P.PN ---
Progress Note - Text Progress Note Date: 10/21/19 Psychiatric progress note: Interval History: Patient was seen for psychiatric follow-up for schizophrenia and paranoia along with auditory hallucinations. Patient has been taking her Prolixin 2 mg twice a day for several days now. Nurse taking care patient states that she has been much less paranoid and more cooperative and has been sleeping. Lace Stripper spoke with patient's daughter Veena at [phone] who states that patient has been doing much better in terms of her behaviors and her paranoia and has had an improvement in her insight. Daughter states that she is currently attempting to get patient into [facility] for psychiatric follow-up. She states that patient is a lot more agreeable to take medications and is willing to take patient home and help her with her medications and follow-up appointments if she is psychiatrically cleared today. Patient was seen at the bedside by bond underwriter and patient was wearing her CPAP and watching TV calmly. Patient was initially somewhat suspicious with bond underwriter however was much more directable and agreeable to speak. She states that she is feeling much better on the Prolixin and claims that she is doing less paranoid and not expressing any auditory hallucinations at this time. Patient claims that she has been taking the medications and denies any side effects. She states that her mood is "fine" and asks about returning home. Patient endorsed wanting to take her medications and states that the only reason why she didn't in the past is because they discontinued her Stelazine. At this time patient denies any suicidal or homical ideations, intent or plan. Patient denies any auditory, visual hallucinations and denies any paranoia or delusions. Patient denies any side effects from the medications and has been compliant with meds. Mental Status Exam: General Appearance: Patient appears to be overweight, stated age is alert, more pleasant today and communicative. Wearing hospital gown and laying in bed watching television. Behavior: Patient is calmly lying in bed without any agitated behavior. Operati ve bond underwriter. Speech: Patient's speech is fluent and nonpressured. Minimal content. Mood/Affect: Patient reports their mood is "ok", affect is congruent and constricted, improved range. Suicidality/Homicidality: Patient denies having any suicidal or homicidal ideation intent or plan. Perceptions: Patient denies any visual hallucinations and denies any auditory hallucinations Though content/process: Poverty of content, More goal oriented and organized. Memory and concentration: AOX3, grossly intact for the purposes of this session. Judgment and insight: improved Assessment Schizophrenia Nicotine dependence Plan: -At this time patient does NOT meet criteria for inpatient psychiatric admission. Patient has been taking her Prolixin medication and doing much better psychiatrically with improved insight and judgment and also sleeping has improved. She is not endorsing any auditory or visual hallucinations and not endorsing any homicidal or suicidal ideations intent or plan. Lace Stripper spoke with daughter over the phone who states that she will watch over patient and monitor her medication compliance and also take her to her outpatient [facility] appointment. Daughter feels comfortable taking patient home at this time. -Would recommend the following medication changes/additions: We'll increase Prolixin to 2.5 mg twice a day for psychosis. -Certification will early this afternoon and patient will be medically cleared for discharge back home under doctor's supervision. -Psychiatry will sign off at this point, please contact with any questions.
--- NOTE | 2019-10-21 14:40 | P.PN ---
Subjective Progress Note Date: 10/21/19 Principal diagnosis: This is a 69-year-old female past medical history of multiple medical problems and was recently admitted for generalized weakness, diminished oral intake, acute renal failure, dehydration, and changes in mental status and is being closely monitored. Patient currently lives with her daughter and her daughter cares for her and started noticing these changes over the last several days. Today patient is sitting up at the side of the bed currently eating breakfast. Nephrology and psychiatry are following closely. Social work is also following and working on possible placement at an inpatient psychiatric facility. Current creatinine today has worsened and is 2.06. Encouraged oral intake as patient is currently off IV fluids. Potassium is 3.3 today and will be replaced. 10/20/2019 Patient is sitting on the side of the bed currently with her CPAP machine on. When asking patient if she was short of breath patient stated that her breathing was fine and experiencing no shortness of breath. Patient states that she wears her CPAP often throughout the day. Patient was stating that she was having some abdominal discomfort and requesting something to help move her bowels. She states that she is passing gas. Creatinine today is slightly improved and is currently 1.91. Potassium is 3.5 today. Nephrology is following. Patient was cleared by nephrology to go to an inpatient psychiatric facility. Spoke to Dr. Spencer and is willing to accept the patient on the inpatient psychiatric unit. Patient has been up and walking the halls today with no difficulties. Will continue to monitor the patient closely and currently awaiting an accepting facility or if a bed becomes available here on the inpatient psychiatric unit. 10/21/2019 Patient is currently sitting up at the side of the bed asking when she may be discharged. Case management and social work were working on her case looking for possible inpatient psychiatric facilities to accept her as she currently not be accepted at the inpatient psychiatric floor here as she uses a CPAP at night which poses a safety risk. Psychiatry evaluated the patient and has cleared her for discharge home with her daughter once medically stable. Patient's creatinine is slightly worse and today and is currently 2.04. Patient is not receiving IV fluids as she continues to pull her IVs out. Continued to encourage oral intake and will monitor the patient closely. Will repeat a.m. labs. Repeat potassium is 3.5 today. Patient states that she has been eating more and tolerating diet. Review of Systems: Cardiovascular: No reports of chest pain or palpitations Respiratory: No reports of shortness of breath or cough GI: No reports of nausea, vomiting, or diarrhea : No reports of dysuria or retention Constitutional: Cooperative, no reports of suicidal ideation, no reports of hallucinations Active Medications Artificial Tears (Artificial Tear Drops) 1 drops BOTH EYES Q4H PRN PRN Reason: DRY EYES Ascorbic Acid (Vitamin C) 500 mg PO DAILY [facility] Last Admin: 10/21/19 08:14 Dose: 500 mg Documented by: Ferrous Sulfate (Feosol) 325 mg PO DAILY [facility] Last Admin: 10/21/19 08:16 Dose: Not Given Documented by: Fluphenazine HCl (Prolixin) 2 mg PO BID [facility] Last Admin: 10/21/19 10:35 Dose: 2 mg Documented by: Fluphenazine HCl (Prolixin) 2.5 mg IM Q6HR PRN PRN Reason: Agitation or Acute Psychosis Fluticasone Propionate (Flonase Nasal [place]) 2 spray EA NOSTRIL DAILY [facility] Last Admin: 10/21/19 08:16 Dose: Not Given Documented by: Glipizide (Glucotrol) 20 mg PO AC-BID [facility] Last Admin: 10/21/19 08:16 Dose: Not Given Documented by: Hydralazine HCl (Apresoline) 100 mg PO Q8H [facility] Last Admin: 10/21/19 12:28 Dose: Not Given Documented by: Labetalol HCl (Trandate) 400 mg PO Q12HR [facility] Last Admin: 10/21/19 08:13 Dose: 400 mg Documented by: Levothyroxine Sodium (Synthroid) 176 mcg PO DAILY@0630 [facility] Last Admin: 10/21/19 05:44 Dose: 176 mcg Documented by: Linagliptin (Tradjenta) 5 mg PO DAILY [facility] Last Admin: 10/21/19 08:12 Dose: 5 mg Documented by: Lorazepam (Ativan) 1 mg IV Q4HR PRN PRN Reason: Agitation Last Admin: 10/20/19 20:11 Dose: 1 mg Documented by: Lorazepam (Ativan) 1 mg IM Q8HR PRN PRN Reason: Agitation Multivitamins (Theragran) 1 each PO DAILY [facility] Last Admin: 10/21/19 08:14 Dose: 1 each Documented by: Naloxone HCl (Narcan) 0.2 mg IV Q2M PRN PRN Reason: Opioid Reversal Nifedipine (Procardia Xl) 90 mg PO DAILY [facility] Last Admin: 10/21/19 08:17 Dose: Not Given Documented by: Prednisolone Acetate (Pred Forte 1%) 1 drops LEFT EYE BID [facility] Last Admin: 10/21/19 08:16 Dose: 1 drops Documented by: Senna (Senokot) 8.6 mg PO BID [facility] Last Admin: 10/21/19 08:15 Dose: 8.6 mg Documented by: Timolol Maleate (Timoptic) 1 drops LEFT EYE BID [facility] Last Admin: 10/21/19 08:16 Dose: 1 drops Documented by: Objective - Vital Signs Vital signs: Vital Signs Temp 98.9 F 10/21/19 05:00 Pulse 79 10/21/19 05:00 Resp 18 10/21/19 05:00 BP 144/85 10/21/19 05:00 Pulse Ox 97 10/21/19 05:00 Intake & Output 10/20/19 10/21/19 10/21/19 18:59 06:59 18:59 Intake Total 240 840 240 Balance 240 840 240 Weight 103.1 kg Intake: Oral 240 840 240 Other: # Voids 3 2 - Exam Gen: This is a 69-year-old female sitting up at the side of the bed, awake and alert. Well-nourished. Hair and clothing are disheveled. Temp is 98.9F, pulse is 79, respirations are 18, blood pressure is 44/85, oxygen saturation is 97%. HEENT: Head is atraumatic, normocephalic. Pupils equal, round. Sclerae is anicteric. NECK: Supple. No JVD. No lymphadenopathy. No thyromegaly. LUNGS: Diminished breath sounds at the bases with no wheezing noted. No intercostal retractions. HEART: Regular rate and rhythm. No murmur. ABDOMEN: Soft. Bowel sounds are present. No masses. No tenderness. EXTREMITIES: No pedal edema. No calf tenderness. NEUROLOGICAL: Patient is awake, alert and oriented x2-3. - Labs CBC & Chem 7: 10/19/19 11:35 10/21/19 08:26 Labs: Abnormal Lab Results - Last 24 Hours (Table) 10/20/19 10/20/19 10/21/19 Range/Units 17:24 20:18 07:16 Creatinine (0.52-1.04) mg/dL Glucose (74-99) mg/dL POC Glucose (mg/dL) 162 H 158 H 142 H (75-99) mg/dL 10/21/19 10/21/19 Range/Units 08:26 12:12 Creatinine 2.04 H (0.52-1.04) mg/dL Glucose 131 H (74-99) mg/dL POC Glucose (mg/dL) 220 H (75-99) mg/dL Microbiology - Last 24 Hours (Table) 10/18/19 11:41 Blood Culture - Preliminary Blood No Growth after 48 hours Assessment and Plan Assessment: Change in mental status, metabolic encephalopathy, possibly acute secondary to renal failure and dehydration Diminished oral intake Mass-like consolidation in the right lower lobe Possible psychosis Hypokalemia, possibly secondary to diminished by mouth intake History of congestive heart failure History of diabetes mellitus type 2 Hypertension Hyperlipidemia history of renal disease History of sleep apnea history of hysterectomy History of anxiety, schizophrenia Full code Recommendations and discussion: In this 63-year-old female who presents with multiple complex medical issues we will continue to monitor closely. Recommend to continue current medications, management, and symptomatic treatment. Will continue to monitor vital signs and labs closely. Will repeat a.m. labs. Current creatinine today is slightly worsened and is 2.04. Potassium today is 3.5. Continue to Encourage oral intake. Nephrology and psychiatry are following. Psychiatry reevaluated the patient today and has cleared the patient for discharge to home with her daughter once medically stable. Discussed with the daughter at length and she is agreeable to this treatment plan. Due to multiple complex medical issues pr ognosis is guarded. Further recommendations to follow. Possible discharge 24 hours.
[2019-10-21 16:56] LABS: Glucose,Whole Blood 143 mg/dL (75-99)
[2019-10-21] MEDS ORDERED: INSULIN ASPART (NovoLOG) 100 UNIT/ML VIAL SQ SCH (17:30)
[2019-10-21 21:14] LABS: Glucose,Whole Blood 94 mg/dL (75-99)
[2019-10-22] MEDS: hydrALAZINE HCL 50 MG TAB PO SCH ×2 (04:56→11:13)
[2019-10-22] MEDS: LEVOTHYROXINE 88 MCG TAB PO SCH (05:59)
[2019-10-22 07:02] VITALS: BP 144/83; PULSE 83; RESP 18; TEMP 99
[2019-10-22 07:21] LABS: Glucose,Whole Blood 70 mg/dL (75-99)
[2019-10-22] MEDS: prednisoLONE ACETATE 1% OPHTH DROPS 5 ML BTL LEFT EYE SCH (07:45)
[2019-10-22] MEDS: TIMOLOL 0.5% OPHTH DROPS 5 ML BTL LEFT EYE SCH (07:45)
[2019-10-22] MEDS: FLUTICASONE 50MCG/SPRAY NASAL 16GM EA NOSTRIL SCH (07:46)
[2019-10-22] MEDS: MULTIVITAMINS, THERA 1 EACH TAB PO SCH (07:46)
[2019-10-22] MEDS: SENNOSIDES 8.6 MG TAB PO SCH (07:47)
[2019-10-22] MEDS: NIFEdipine XL 90 MG TAB.ER.24 PO SCH (07:47)
[2019-10-22] MEDS: LINAGLIPTIN 5 MG TABLET PO SCH (07:48)
[2019-10-22] MEDS: ASCORBIC ACID 500 MG TAB PO SCH (07:48)
[2019-10-22] MEDS: LABETALOL 200 MG TAB PO SCH (07:48)
[2019-10-22] MEDS: glipiZIDE 10 MG TAB PO SCH (07:49)
[2019-10-22] MEDS: FERROUS SULFATE 325 MG TAB PO SCH (07:49)
[2019-10-22 08:51] LABS: Calcium 8.6 mg/dL (8.4-10.2)
[2019-10-22 08:53] LABS: Potassium 3.9 mmol/L (3.5-5.1)
[2019-10-22 12:11] LABS: Glucose,Whole Blood 152 mg/dL (75-99)
--- NOTE | 2019-10-22 13:37 | P.DS ---
Providers Date of admission: 10/19/19 13:53 Expected date of discharge: 10/22/19 Attending physician: Chucho Vera Consults: 10/17/19 18:16 Consult Physician Routine Consulting Provider: Joseph Dukes Consult Reason/Comments: psych eval Do you want consulting provider notified?: Yes 10/17/19 23:14 Consult Physician Routine Consulting Provider: Guerda Smiley Consult Reason/Comments: chandler Do you want consulting provider notified?: Yes 10/18/19 04:51 Consult Physician Routine Consulting Provider: Chucho Vera Consult Reason/Comments: Psych evaluation Do you want consulting provider notified?: Yes Primary care physician: Ketty Gomez [facility] Course: Final diagnosis Change in mental status, metabolic encephalopathy, possibly acute secondary to renal failure and dehydration Diminished oral intake Mass-like consolidation in the right lower lobe Possible psychosis Hypokalemia, possibly secondary to diminished by mouth intake History of congestive heart failure History of diabetes mellitus type 2 Hypertension Hyperlipidemia history of renal disease History of sleep apnea history of hysterectomy History of anxiety, schizophrenia Full code Discharge disposition Patient is being discharged in a stable condition with guarded prognosis to home and will follow-up with primary care provider Dr. Gomez and [facility] for her scheduled appointment on October 25. Patient will continue with Prolixin 2.5 mg twice daily in the outpatient setting. Total time taken is 35 minutes. History of present illness This is a 69-year-old female who was recently admitted with multiple medical problems and was being closely monitored for generalized weakness, diminished oral intake, acute renal failure, dehydration, and changes in mental status. Initially patient was petitioned and clinically certed for acute psychosis and possibly requiring inpatient psychiatric hospitalization. Patient's intake was also diminished but the patient was evaluated by psychiatry and started on Prolixin and has been tolerating well. Other medication adjustments with her psychiatric medications have been made. Patient's creatinine is slightly improved and is currently 1.83 today. Nephrology was following. Patient will follow-up with nephrology in the outpatient setting. She'll need repeat labs in 2-3 days to monitor creatinine. Currently patient denies any chest pain, shortness of breath, or palpitations. Patient is afebrile. Patient denies any nausea or vomiting and is tolerating diet. Patient states that she had a bowel movement yesterday denies any abdominal discomfort at this time. Patient was reevaluated by psychiatry and was cleared once medically stable for discharge home as she lives with her daughter and this was discussed with daughter and she was agreeable with taking the patient home. She has a scheduled appointment with [facility] for October 25 and daughter will be taking her there. She will continue on Prolixin in the outpatient setting. Guarded prognosis. On exam vital signs are stable. Temp is 99F, pulse is 83, respirations are 18, blood pressure is 144/83, oxygen saturation is 96%. Cardio S1, S2 are muffled. Respiratory system shows diminished breath sounds at the bases otherwise clear to auscultation. Abdomen is soft, obese, nontender. Nervous system shows no focal deficits. Please refer to medication reconciliation sheet for a list of medications. Patient Condition at Discharge: Stable Plan - Discharge Summary New Discharge Prescriptions: New Sennosides [Senokot] 8.6 mg PO BID PRN tab PRN Reason: Constipation Linagliptin [Tradjenta] 5 mg PO DAILY tablet fluPHENAZine [Prolixin 5MG] 2.5 mg PO DAILY 30 Days #30 tablet Continue glipiZIDE [Glucotrol] 20 mg PO AC-BID Levothyroxine Sodium [Synthroid] 175 mcg PO DAILY Labetalol [Trandate] 400 mg PO Q12H Cholecalciferol [Vitamin D3 (25 Mcg = 1000 Iu)] 1,000 unit PO DAILY hydrALAZINE HCL [Apresoline] 100 mg PO Q8H prednisoLONE ACETATE 1% OPHTH [Pred Forte 1%] 1 drops LEFT EYE BID NIFEdipine [Procardia XL] 90 mg PO DAILY Fluticasone Nasal [place] [Flonase Nasal [place]] 2 spr EA NOSTRIL DAILY Ascorbic Acid [Vitamin C] 500 mg PO DAILY Timolol 0.5% Ophth Soln [Timoptic 0.5% Ophth Soln] 1 drop LEFT EYE BID Ferrous Sulfate [Iron (65 MG Elemental)] 325 mg PO DAILY Ergocalciferol [Vitamin D2 (DRISDOL)] 50,000 unit PO MO Multivitamins, Thera [Multivitamin (formulary)] 1 tab PO DAILY Dextran/Hypromellose/Glycerin [Genteal Tears 0.1%-0.2%-0.3%] 1 drop BOTH EYES Q4H PRN PRN Reason: DRY EYES Discontinued sitaGLIPtin [Januvia] 100 mg PO DAILY Triamterene/Hydrochlorothiazid [Triamterene-Hctz 37.5-25 mg Tb] 1 tab PO DAILY Baclofen [Lioresal] 10 mg PO HS PRN PRN Reason: Pain Temazepam [Restoril] 15 mg PO HS Enalapril [Vasotec] 20 mg PO BID Simvastatin [Zocor] 20 mg PO DAILY@1200 Potassium Chloride ER [K-Dur 20] 20 meq PO DAILY ALPRAZolam [Xanax] 0.25 mg PO HS PRN PRN Reason: Anxiety Discharge Medication List Ascorbic Acid [Vitamin C] 500 mg PO DAILY 10/17/19 [History] Cholecalciferol [Vitamin D3 (25 Mcg = 1000 Iu)] 1,000 unit PO DAILY 10/17/19 [History] Dextran/Hypromellose/Glycerin [Genteal Tears 0.1%-0.2%-0.3%] 1 drop BOTH EYES Q4H PRN 10/17/19 [History] Ergocalciferol [Vitamin D2 (DRISDOL)] 50,000 unit PO MO 10/17/19 [History] Ferrous Sulfate [Iron (65 MG Elemental)] 325 mg PO DAILY 10/17/19 [History] Fluticasone Nasal [place] [Flonase Nasal [place]] 2 spr EA NOSTRIL DAILY 10/17/19 [History] Labetalol [Trandate] 400 mg PO Q12H 10/17/19 [History] Levothyroxine Sodium [Synthroid] 175 mcg PO DAILY 10/17/19 [History] Multivitamins, Thera [Multivitamin (formulary)] 1 tab PO DAILY 10/17/19 [History] NIFEdipine [Procardia XL] 90 mg PO DAILY 10/17/19 [History] Timolol 0.5% Ophth Soln [Timoptic 0.5% Ophth Soln] 1 drop LEFT EYE BID 10/17/19 [History] glipiZIDE [Glucotrol] 20 mg PO AC-BID 10/17/19 [History] hydrALAZINE HCL [Apresoline] 100 mg PO Q8H 10/17/19 [History] prednisoLONE ACETATE 1% OPHTH [Pred Forte 1%] 1 drops LEFT EYE BID 10/17/19 [History] Linagliptin [Tradjenta] 5 mg PO DAILY tablet 10/20/19 [Rx] Sennosides [Senokot] 8.6 mg PO BID PRN tab 10/20/19 [Rx] fluPHENAZine [Prolixin 5MG] 2.5 mg PO DAILY 30 Days #30 tablet 10/22/19 [Rx] Follow up Appointment(s)/Referral(s): Guerda Smiley MD [STAFF PHYSICIAN] - 1 Week (office closed, please call to make apointment) Ketty Gomez MD [Primary Care Provider] - 1-2 days (office closed, please call to make appointment) Ambulatory/Diagnostic Orders: Basic Metabolic Panel [LAB.AMB] Time Frame: 2 Days, Location: None Selected Patient Instructions/Handouts: Acute Kidney Injury (DC) Activity/Diet/Wound Care/Special Instructions: Activity Limited until follow-up Repeat labs in 2-3 days to monitor creatinine and potassium Follow-up with primary care provider upon discharge Follow-up with psychiatry as scheduled Continue current consistent carb diet. Appointment made with [facility] for october 25, 2019 Discharge Disposition: HOME SELF-CARE
--- NOTE | 2019-10-22 18:51 | PN ---
PROGRESS NOTE The patient is seen for followup for chronic kidney disease. Renal function is fairly stable. Patient is resting comfortably. On examination this morning, blood pressure was 144/83, heart rate 83 per minute. She is afebrile. Examination of the heart S1, S2. Examination of the lungs, bilateral breath sounds are heard. Abdomen is soft, nontender, obese. Examination of lower extremities shows no significant edema. LABS: Sodium 138, potassium 3.9, chloride 108, BUN 18, creatinine 1.83. ASSESSMENT: 1. Chronic kidney disease stage 3 secondary to diabetic nephropathy. Renal function stable. 2. Hypertension, currently controlled. 3. Hypokalemia, status post replacement. 4. Bipolar disorder. 5. Type 2 diabetes. PLAN: Followup as outpatient for CKD. Continue current medications. MMODL / IJN: [id number] /
== END 2019-10-22 13:20 | disposition home or self-care (01) | DRG 682 ==
LOC: EC 14:36 → 6NMEDSUR 23:14 → OBSVTOIN 10-19 13:53
PROVIDERS: ADMIT Hospitalist; ATTEND Hospitalist
PROC: 5A09457 Assistance with Respiratory Ventilation, 24-96 Consecutive Hours, Continuous Positive Airway Pressure (ICD-10-PCS; principal; 2019-10-19)
DX: N17.9 Acute kidney failure, unspecified (principal); G93.41 Metabolic encephalopathy; F20.0 Paranoid schizophrenia; I13.0 Hypertensive heart and chronic kidney disease with heart failure and stage 1 through stage 4 chronic kidney disease, or unspecified chronic kidney disease; N18.3 Chronic kidney disease, stage 3 (moderate); I50.9 Heart failure, unspecified; E11.22 Type 2 diabetes mellitus with diabetic chronic kidney disease; E86.0 Dehydration; E87.6 Hypokalemia; E78.5 Hyperlipidemia, unspecified; G47.30 Sleep apnea, unspecified; F41.9 Anxiety disorder, unspecified; E03.9 Hypothyroidism, unspecified; R40.2142 Coma scale, eyes open, spontaneous, at arrival to emergency department; R40.2362 Coma scale, best motor response, obeys commands, at arrival to emergency department; R40.2242 Coma scale, best verbal response, confused conversation, at arrival to emergency department; F17.200 Nicotine dependence, unspecified, uncomplicated; E66.9 Obesity, unspecified; F31.9 Bipolar disorder, unspecified; R91.8 Other nonspecific abnormal finding of lung field; H04.123 Dry eye syndrome of bilateral lacrimal glands; Z79.890 Hormone replacement therapy; Z79.84 Long term (current) use of oral hypoglycemic drugs; Z79.899 Other long term (current) drug therapy; Z96.652 Presence of left artificial knee joint; Z90.49 Acquired absence of other specified parts of digestive tract; Z98.890 Other specified postprocedural states; Z90.710 Acquired absence of both cervix and uterus; Z98.42 Cataract extraction status, left eye; Z98.41 Cataract extraction status, right eye; Z68.36 Body mass index [BMI] 36.0-36.9, adult; Z88.5 Allergy status to narcotic agent; Z88.2 Allergy status to sulfonamides; Z81.8 Family history of other mental and behavioral disorders
CPT/HCPCS: 36415; 71045; 80048; 80053; 80076; 80306; 81001; 82075; 82550; 85025; 87040; 96360; 96361; 96372; 99285